=== PATIENT | female | born 1940 ===

== ENCOUNTER 2018-02-16 09:28 | Emergency (ER) | payer OTHER ==
[~2018-02-16] VITALS: Ht 157.5 cm; Wt 63.5 kg
[2018-02-16] MEDS ORDERED: ATENOLOL50 MG (09:43)
[2018-02-16] MEDS ORDERED: VASOTEC5 MG (09:43)
[2018-02-16] MEDS ORDERED: LIPITOR20 MG (09:43)
[2018-02-16] MEDS ORDERED: ZOVIRAX5 GM TOP (11:02)
[2018-02-16] MEDS ORDERED: VALTREX1000 MG PO (11:02)
[2018-02-16] MEDS ORDERED: NEURONTIN300 MG PO (11:02)
== END 2018-02-16 11:13 | disposition home or self-care (01) ==
LOC: ER 09:28
DX: B02.8 Zoster with other complications (principal)